=== PATIENT | female | born 1985 | race Caucasian/White ===

== ENCOUNTER → 2023-09-07 | Outpatient (CLI) | payer SELFPAY ==
[2023-09-07 14:39] LABS: Source, Urine Clean Catch
[2023-09-07 17:24] LABS: Appearance, Urine Clear (Clear); Bilirubin, Urine Neg (Neg); Blood, Urine 1+ (Neg); Color, Urine Yellow (P-Yellow); Glucose Qualitative, Urine Neg (Neg); Ketones, Urine Neg (Neg); Leukocyte Esterase, Urine Neg (Neg); Nitrite, Urine Neg (Neg); Protein, Urine Neg (Neg); Urobilinogen, Urine NORM (Normal)
[2023-09-07 17:36] LABS: Bacteria Mod /hpf; Red Blood Cells, Urine 0-2 /hpf (0-2); Squamous Epithelial Cells Few /hpf (Few); White Blood Cells, Urine 0-2 /hpf (0-5)
[2023-09-09 20:53] LABS: APTIMA MEDIA TYPE Unisex Swab; C. TRACHOMATIS BY TMA Negative (Negative); N. GONORRHOEAE BY TMA Negative (Negative); SPECIMEN SOURCE Vaginal
== END | disposition home or self-care (01) ==
LOC: LAB SHORT 14:36
PROVIDERS: Advanced Practice Midwife
DX: Z11.3 Encounter for screening for infections with a predominantly sexual mode of transmission (principal); R31.9 Hematuria, unspecified
CPT/HCPCS: 81001; 87077; 87086; 87186; 87491; 87591

== ENCOUNTER → 2023-10-26 | Outpatient (CLI) | payer SELFPAY ==
[2023-10-26 13:02] LABS: Source, Urine Clean Catch
[2023-10-26 13:06] LABS: Appearance, Urine Clear (Clear); Bilirubin, Urine Neg (Neg); Blood, Urine Neg (Neg); Color, Urine Yellow (P-Yellow); Glucose Qualitative, Urine Neg (Neg); Ketones, Urine Neg (Neg); Leukocyte Esterase, Urine Neg (Neg); Nitrite, Urine Neg (Neg); Protein, Urine Neg (Neg); Urobilinogen, Urine NORM (Normal)
== END | disposition home or self-care (01) ==
LOC: LAB 11:25 → LAB SHORT 11:25
PROVIDERS: Advanced Practice Midwife
DX: O23.42 Unspecified infection of urinary tract in pregnancy, second trimester (principal)
CPT/HCPCS: 81003

== ENCOUNTER → 2023-12-29 | Outpatient (CLI) | payer SELFPAY ==
[2023-12-29 13:07] LABS: Source, Urine Voided
[2023-12-29 14:36] LABS: Appearance, Urine Clear (Clear); Bilirubin, Urine Neg (Neg); Blood, Urine Neg (Neg); Glucose Qualitative, Urine Neg (Neg); Ketones, Urine Neg (Neg); Leukocyte Esterase, Urine Neg (Neg); Nitrite, Urine Neg (Neg); Protein, Urine Neg (Neg); Specific Gravity, Urine 1.005 (1.003-1.022); Urobilinogen, Urine NORM (Normal)
[2023-12-29 16:03] LABS: Color, Urine Pale Yellow (P-Yellow)
== END ==
LOC: LAB SHORT 13:03 → LAB 13:03
PROVIDERS: Advanced Practice Midwife
DX: N39.0 Urinary tract infection, site not specified (principal)
CPT/HCPCS: 81003